=== PATIENT | male | born 1950 | race Caucasian/White ===

== ENCOUNTER 2019-09-22 10:44 | Inpatient (IN) ==
[2019-09-22] MEDS ORDERED: POTASSIUM CHLORIDE RIDER 10 MEQ in PREMIX 1 EACH IV PRN (12:44)
[2019-09-22] MEDS ORDERED: MAGNESIUM SULF RIDER 2 GM in PREMIX 1 EACH IV PRN (12:44)
[2019-09-22] MEDS ORDERED: ASPIRIN 325 MG TABLET PO ONE (12:44)
[2019-09-22] MEDS ORDERED: diphenhydrAMINE CAP 25 MG CAPSULE PO ONE (12:44)
[2019-09-22] MEDS ORDERED: DIAZEPAM 5 MG TABLET PO ONE (12:44)
[2019-09-22] MEDS ORDERED: methylPREDNISolone SOD SUC 125 MG/2 ML VIAL IV ONE (12:46)
[2019-09-22] MEDS ORDERED: HEPARIN/NACL 0.9% 2 UNITS/ML 1,000 ML IV ONE (12:49)
[2019-09-22 12:57] LABS: Basophils % 0.8 % (0.0-0.8); Eosinophils % 0.8 % (0.00-10.9); Hematocrit 40.5 VOL% (42.0-52.0); Hemoglobin 13.1 GM/DL (14.0-18.0); Immature Granulocytes % 0.3 %; Immature Granulocytes Absolute 0.01 #; Lymphocytes # 1.5 10*3/uL (1.4-4.0); Lymphocytes % 39.5 % (21.2-54.2); Mean Corpuscular HGB Conc 32.3 GM/DL (32-36); Mean Corpuscular Volume 92.7 FL (87-102); Mean Platelet Volume 12.8 FL (9.6-12.0); Monocytes % 13.1 % (1.7-12.7); Neutrophils % 45.5 % (38.7-73.9); Platelet Count 133 T/CUMM (130-400); Red Blood Count 4.37 MC/CUMM (3.8-5.5); White Blood Count 3.9 T/CUMM (4-12)
[2019-09-22] MEDS ORDERED: DEXTROSE 5% NACL 0.45% 1,000 ML IV SCH (13:00)
[2019-09-22 13:04] LABS: INR 1.1; PT Patient Result 12.1 SECS (9.6-12.2)
[2019-09-22] MEDS ORDERED: MIDAZOLAM 2 MG/2 ML VIAL ONE (13:15)
[2019-09-22] MEDS ORDERED: LIDOCAINE 1%/EPI INJ 20 ML VIAL ONE (13:15)
[2019-09-22] MEDS ORDERED: fentaNYL 100 MCG/2 ML VIAL ONE (13:15)
[2019-09-22 14:12] LABS: Albumin 3.6 G/DL (3.4-5.0); Bilirubin,Total 0.5 MG/DL (0.2-1.0); Calcium 9.3 MG/DL (8.5-10.1); Osmolality,Calculated 273.1 MOS/KG (273-304); Total Protein 8.4 G/DL (6.4-8.3)
[2019-09-22] MEDS ORDERED: GLUCAGON 1 MG VIAL IM PRN (15:56)
[2019-09-22] MEDS ORDERED: DEXTROSE 10% 250 ML BAG IV PRN (15:56)
[2019-09-22] MEDS ORDERED: carvediloL 12.5 MG TABLET PO SCH (17:00)
[2019-09-22 17:48] LABS: ABG Base Excess 2.2 MMOL/L (-2.5-2.5); ABG HCO3 26.4 MMOL/L (20-26); ABG Oxygen Saturation 97.1 % (95-100); ABG PCO2 33.5 MM HG (35-48); ABG PH 7.484 (7.35-7.45); Pt O2 Delivery Device Room Air
[2019-09-22] MEDS ORDERED: SIMVASTATIN 40 MG TABLET PO SCH (18:00)
[2019-09-22] MEDS: CHLORHEXIDINE 4% SOLN 118 ML BOTTLE TOP SCH ×2 (18:30→21:07)
[2019-09-22 19:03] LABS: Albumin 3.5 G/DL (3.4-5.0); Bilirubin,Total 0.4 MG/DL (0.2-1.0); Calcium 8.9 MG/DL (8.5-10.1); Osmolality,Calculated 277.1 MOS/KG (273-304); Total Protein 8.1 G/DL (6.4-8.3)
[2019-09-22] MEDS ORDERED: METOPROLOL SUCCINATE XL 50 MG TABLET PO SCH (21:00)
[2019-09-22] MEDS ORDERED: CITALOPRAM 20 MG TABLET PO SCH (21:00)
[2019-09-22] MEDS ORDERED: LOSARTAN 50 MG TABLET PO SCH (21:00)
[2019-09-22] MEDS ORDERED: hydroCHLOROthiazide 12.5 MG CAPSULE PO SCH (21:00)
[2019-09-22] MEDS: CHLORHEXIDINE 0.12% ORAL RINSE 60 ML BOTTLE SWISH/SPIT SCH (21:07)
[2019-09-23] MEDS ORDERED: NITROPRUSSIDE 50 MG/2 ML VIAL ONE (04:07)
[2019-09-23] MEDS ORDERED: SODIUM BICARBONATE 50 MEQ/50 ML VIAL IV ONE ×2 (04:07→10:48)
[2019-09-23] MEDS ORDERED: PHENYLEPHRINE DRIP 40 MG/250 ML PREMIX IV ONE (04:07)
[2019-09-23] MEDS ORDERED: POTASSIUM CHLORIDE RIDER 100 ML IV ONE (04:08)
[2019-09-23] MEDS ORDERED: CALCIUM CHLORIDE 1,000 MG/10 ML SYRINGE IV ONE (04:08)
[2019-09-23] MEDS ORDERED: VANCOMYCIN 500 MG VIAL ONE (04:41)
[2019-09-23] MEDS ORDERED: PAPAVERINE 60 MG/2 ML VIAL ONE (04:41)
[2019-09-23] MEDS ORDERED: VANCOMYCIN 1,000 MG VIAL ONE (04:42)
[2019-09-23] MEDS ORDERED: CEFUROXIME INJ 1,500 MG in SYRINGE 1 EACH IV ONE (05:00)
[2019-09-23] MEDS ORDERED: SODIUM CHLORIDE 0.9% 1,000 ML IV SCH (05:00)
[2019-09-23] MEDS ORDERED: ALBUMIN 5% 12.5 GM/250 ML VIAL IV ONE ×2 (05:20→11:55)
[2019-09-23] MEDS ORDERED: SUFentanil 250 MCG/5 ML AMP ONE (05:44)
[2019-09-23] MEDS ORDERED: MIDAZOLAM 10 MG/2 ML VIAL ONE ×2 (05:45)
[2019-09-23] MEDS ORDERED: VECURONIUM 10 MG VIAL IV ONE (05:45)
[2019-09-23] MEDS ORDERED: MINERAL OIL/PETROLATUM OPH OINT 3.5 GM TUBE ONE (05:45)
[2019-09-23] MEDS ORDERED: FAMOTIDINE 20 MG/2 ML VIAL IV ONE (06:08)
[2019-09-23] MEDS ORDERED: diphenhydrAMINE 50 MG/1 ML VIAL ONE (06:08)
[2019-09-23 07:36] LABS: ABG Base Excess 0.2 MMOL/L (-2.5-2.5); ABG HCO3 24.6 MMOL/L (20-26); ABG Oxygen Saturation 99.8 % (95-100); ABG PCO2 37.7 MM HG (35-48); ABG TCO2 21.8 MMOL/L (23-27); Glucose Heart Surgery 128 MG/DL (74-106); Hematocrit Heart Surgery 34.5 PERCENT (42-52); Hemoglobin Heart Surgery 11.2 G/DL (14.0-18.0); Ionized Calcium Arterial 1.22 MMOL/L (1.21-1.46); PCO2 Patient Temp Arterial 37.7 MMHG; Patient Temperature 37 CELCIUS; Potassium Heart/CVR 3.6 MMOL/L (3.5-5.1); Sodium Heart/CVR 137 MMOL/L (135-145)
[2019-09-23 08:02] LABS: Apearance,Urine CLEAR (Clear); Bilirubin,Urine Negative (Negative); Blood, Urine Small mg/dL (Negative); Glucose,Urine (UA) Negative (Negative); Ketones,Urine Negative (Negative); Mucus,Urine Occasional /LPF (Occasional); Nitrite,Urine Negative (Negative); Protein,Urine Negative; RBC,Urine 15 /HPF (0-4); Urine Color Yellow (Yellow); Urine Specific Gravity 1.021 (1.001-1.035); Urine Urobilinogen < 2.0 EU/DL (0.2-1.0); WBC,Urine 1 /HPF (0-6)
[2019-09-23 09:00] LABS: Hematocrit Heart Surgery 26.7 PERCENT (42-52); Hemoglobin Heart Surgery 8.6 G/DL (14.0-18.0); PCO2 Patient Temp Venous 37.7 MM HG; PH Patient Temp Venous 7.431; PO2 Patient Temp Venous 39.2 MM HG; Potassium Heart/CVR 4.3 MMOL/L (3.5-5.1); VBG Oxygen Saturation 79.6 %; VBG PCO2 41.5 MMHG (41-51); VBG PH 7.401
[2019-09-23] MEDS ORDERED: ASPIRIN EC 325 MG TABLET PO SCH (09:00)
[2019-09-23] MEDS ORDERED: THIAMINE 200 MG/2 ML VIAL IV SCH (09:00)
[2019-09-23] MEDS ORDERED: MULTIVITAMIN (CENTRUM) TABLET PO SCH (09:00)
[2019-09-23] MEDS ORDERED: FOLIC ACID INJ 1 MG in SYRINGE 1 EACH IV SCH (09:00)
[2019-09-23 09:36] LABS: Hematocrit Heart Surgery 28.8 PERCENT (42-52); Hemoglobin Heart Surgery 9.3 G/DL (14.0-18.0); PCO2 Patient Temp Venous 32.8 MM HG; PH Patient Temp Venous 7.484; PO2 Patient Temp Venous 33.6 MM HG; Potassium Heart/CVR 4.1 MMOL/L (3.5-5.1); VBG Base Excess 1.7 MEQ/L (0-4); VBG HCO3 25.6 MEQ/L (24-28); VBG Oxygen Saturation 77.3 %; VBG PH 7.44; VBG PO2 41.4 MMHG (17-40)
[2019-09-23] MEDS ORDERED: THROMBIN TOPICAL (RECOMBINANT) 5,000 UNIT VIAL TOP ONE (10:06)
[2019-09-23 10:09] LABS: Hematocrit Heart Surgery 27.9 PERCENT (42-52); PCO2 Patient Temp Venous 30.7 MM HG; PH Patient Temp Venous 7.505; PO2 Patient Temp Venous 37.6 MM HG; VBG Base Excess 1.6 MEQ/L (0-4); VBG HCO3 25.6 MEQ/L (24-28); VBG Oxygen Saturation 81.5 %; VBG PCO2 33.8 MMHG (41-51); VBG PH 7.475; VBG PO2 43.2 MMHG (17-40)
[2019-09-23] MEDS ORDERED: DEXTROSE 5% KCL 20 MEQ 20 MEQ/1,000 ML BAG IV ONE (10:47)
[2019-09-23] MEDS ORDERED: LIDOCAINE 2% 5 ML VIAL ONE ×2 (10:47→11:56)
[2019-09-23] MEDS ORDERED: MANNITOL 100 GM/500 ML BAG IV ONE (10:47)
[2019-09-23] MEDS ORDERED: PROTAMINE SULFATE 50 MG/5 ML VIAL IV ONE ×3 (10:48→12:04)
[2019-09-23] MEDS ORDERED: ALBUMIN 25% 25 GM/100 ML VIAL IV ONE (10:48)
[2019-09-23] MEDS ORDERED: PROTAMINE SULFATE 250 MG/25 ML VIAL IV ONE (10:48)
[2019-09-23] MEDS ORDERED: MAGNESIUM SULFATE 5 GM/10 ML VIAL IV ONE (10:48)
[2019-09-23] MEDS ORDERED: POTASSIUM CHLORIDE 20 MEQ/10 ML VIAL ONE (10:48)
[2019-09-23] MEDS ORDERED: HEPARIN 10,000 UNIT/10 ML VIAL ONE (10:48)
[2019-09-23] MEDS ORDERED: FUROSEMIDE 20 MG/2 ML VIAL ONE (10:48)
[2019-09-23] MEDS ORDERED: methylPREDNISolone SOD SUC 1,000 MG/8 ML VIAL ONE (10:48)
[2019-09-23 10:57] LABS: ABG Base Excess 0.5 MMOL/L (-2.5-2.5); ABG HCO3 24.9 MMOL/L (20-26); ABG PCO2 37.5 MM HG (35-48); ABG PH 7.427 (7.35-7.45); ABG TCO2 22.8 MMOL/L (23-27); Glucose Heart Surgery 209 MG/DL (74-106); Hematocrit Heart Surgery 27.1 PERCENT (42-52); Hemoglobin Heart Surgery 8.7 G/DL (14.0-18.0); Ionized Calcium Arterial 1.37 MMOL/L (1.21-1.46); PCO2 Patient Temp Arterial 37.5 MMHG; PH Patient Temp Arterial 7.427; Patient Temperature 37 CELCIUS; Potassium Heart/CVR 3.8 MMOL/L (3.5-5.1); Sodium Heart/CVR 135 MMOL/L (135-145)
[2019-09-23] MEDS ORDERED: CALCIUM CHLORIDE 1,000 MG/10 ML VIAL IV ONE (11:56)
[2019-09-23] MEDS ORDERED: ETOMIDATE 40 MG/20 ML VIAL IV ONE (11:56)
[2019-09-23] MEDS ORDERED: SEVOFLURANE 1 UNIT/15 MINUTE INH ONE (11:56)
[2019-09-23] MEDS ORDERED: AMINOCAPROIC ACID 5,000 MG/20 ML VIAL ONE (11:57)
[2019-09-23] MEDS ORDERED: SODIUM CHLORIDE 0.9% 250 ML IV ONE (11:57)
[2019-09-23] MEDS ORDERED: LACTATED RINGERS 1,000 ML IV ONE (11:57)
[2019-09-23] MEDS ORDERED: SODIUM CHLORIDE 0.9% 1,000 ML IV ONE (11:57)
[2019-09-23] MEDS: LACTATED RINGERS 1,000 ML IV PRN ×2 (12:00→16:43)
[2019-09-23] MEDS ORDERED: ONDANSETRON 4 MG/2 ML VIAL IV PRN (12:03)
[2019-09-23] MEDS ORDERED: MORPHINE 4 MG/1 ML VIAL IV PRN (12:03)
[2019-09-23] MEDS ORDERED: CALCIUM CHLORIDE 1,000 MG/10 ML SYRINGE IV PRN (12:03)
[2019-09-23] MEDS ORDERED: ACETAMINOPHEN 650 MG SUPP RECTAL PRN (12:03)
[2019-09-23] MEDS ORDERED: VECURONIUM 10 MG VIAL IV PRN ×2 (12:03)
[2019-09-23] MEDS ORDERED: LACTATED RINGERS 250 ML IV PRN (12:03)
[2019-09-23] MEDS ORDERED: DEXTROSE 10% 1,000 ML BAG IV PRN (12:03)
[2019-09-23] MEDS ORDERED: MAGNESIUM SULF RIDER 2 GM in PREMIX 1 EACH IV PRN (12:03)
[2019-09-23] MEDS ORDERED: NITROPRUSSIDE 100 MG in DEXTROSE 5% 250 ML IV PRN (12:03)
[2019-09-23] MEDS ORDERED: INSULIN REGULAR DRIP 100 ML IV SCH (12:03)
[2019-09-23] MEDS ORDERED: INSULIN REGULAR 100 UNIT/ML IV PRN (12:03)
[2019-09-23] MEDS ORDERED: CHLORHEXIDINE 4% SOLN 118 ML BOTTLE TOP PRN (12:03)
[2019-09-23] MEDS ORDERED: SODIUM CHLORIDE 0.45% 1,000 ML IV SCH ×2 (12:03)
[2019-09-23] MEDS ORDERED: MIDAZOLAM 10 MG/2 ML VIAL IV PRN (12:03)
[2019-09-23] MEDS ORDERED: POTASSIUM CHLORIDE RIDER 10 MEQ in PREMIX 1 EACH IV PRN (12:03)
[2019-09-23] MEDS ORDERED: MAGNESIUM SULF RIDER 4 GM in PREMIX 1 EACH IV PRN (12:03)
[2019-09-23] MEDS ORDERED: PHENYLEPHRINE DRIP 40 MG/250 ML PREMIX IV PRN (12:03)
[2019-09-23] MEDS ORDERED: INSULIN REGULAR 100 UNIT/ML IV ONE (12:03)
[2019-09-23] MEDS ORDERED: DEXTROSE 10% 250 ML BAG IV PRN (12:07)
[2019-09-23] MEDS: ALBUMIN 5% 12.5 GM in PREMIX 1 EACH IV PRN ×3 (12:10→14:33)
[2019-09-23 12:13] LABS: ABG Base Excess -1.2 MMOL/L (-2.5-2.5); ABG HCO3 23.4 MMOL/L (20-26); ABG PCO2 35.3 MM HG (35-48); ABG TCO2 21.3 MMOL/L (23-27); Glucose Heart Surgery 170 MG/DL (74-106); Hematocrit Heart Surgery 25.6 PERCENT (42-52); Hemoglobin Heart Surgery 8.2 G/DL (14.0-18.0); Potassium Heart/CVR 3.4 MMOL/L (3.5-5.1)
[2019-09-23 12:16] LABS: Basophils % 0.2 % (0.0-0.8); Eosinophils % 0.1 % (0.00-10.9); Hematocrit 25.4 VOL% (42.0-52.0); Hemoglobin 8.1 GM/DL (14.0-18.0); Immature Granulocytes % 1.2 %; Immature Granulocytes Absolute 0.14 #; Lymphocytes # 1.5 10*3/uL (1.4-4.0); Lymphocytes % 12.8 % (21.2-54.2); Mean Corpuscular HGB Conc 31.9 GM/DL (32-36); Mean Corpuscular Volume 93.7 FL (87-102); Mean Platelet Volume 11.2 FL (9.6-12.0); Monocytes % 7.2 % (1.7-12.7); Neutrophils % 78.5 % (38.7-73.9); Platelet Count 82 T/CUMM (130-400); Red Blood Count 2.71 MC/CUMM (3.8-5.5); Red Cell Distribution Width 13.1 % (9.3-17.3); White Blood Count 12.1 T/CUMM (4-12)
[2019-09-23 12:28] LABS: INR 1.6; Partial Thromboplastin Time 28.3 SECS (20.8-36.0)
[2019-09-23] MEDS: POTASSIUM CHLORIDE RIDER 20 MEQ in PREMIX 1 EACH IV PRN ×3 (12:34→21:39)
[2019-09-23 12:38] LABS: Albumin 2.9 G/DL (3.4-5.0); Bilirubin,Total 0.6 MG/DL (0.2-1.0); Calcium 8.9 MG/DL (8.5-10.1); Osmolality,Calculated 279.7 MOS/KG (273-304); Total Protein 5.7 G/DL (6.4-8.3)
[2019-09-23 12:40] LABS: Hypochromasia 2+; Ovalocytes Slight; Platelet Estimate Decreased
[2019-09-23 12:41] LABS: CKMB % 8.3 %
[2019-09-23 12:44] LABS: Troponin I 2.84 NG/ML (0.00-0.045)
[2019-09-23] MEDS: MIDAZOLAM 2 MG/2 ML VIAL IV PRN ×2 (14:10→16:03)
[2019-09-23 14:22] LABS: ABG HCO3 22.7 MMOL/L (20-26); ABG Oxygen Saturation 98.6 % (95-100); ABG PH 7.409 (7.35-7.45); Glucose Heart Surgery 200 MG/DL (74-106); Hematocrit Heart Surgery 31.7 PERCENT (42-52); Potassium Heart/CVR 4.2 MMOL/L (3.5-5.1)
[2019-09-23 14:26] LABS: Hemoglobin Heart Surgery 10.2 G/DL (14.0-18.0)
[2019-09-23] MEDS: MORPHINE 10 MG/1 ML VIAL IV PRN ×2 (15:28→23:42)
[2019-09-23] MEDS: CHLORHEXIDINE 0.12% ORAL RINSE 60 ML BOTTLE SWISH/SPIT SCH ×2 (15:46→21:10)
[2019-09-23] MEDS: CHLORHEXIDINE 4% SOLN 118 ML BOTTLE TOP SCH (15:46)
[2019-09-23] MEDS: KETOROLAC 30 MG/1 ML VIAL IV SCH ×2 (17:28→22:53)
[2019-09-23 18:31] LABS: ABG HCO3 22.8 MMOL/L (20-26); ABG PCO2 37.9 MM HG (35-48); ABG PH 7.386 (7.35-7.45); ABG TCO2 20.8 MMOL/L (23-27); Glucose Heart Surgery 162 MG/DL (74-106); Hematocrit Heart Surgery 30.1 PERCENT (42-52); Hemoglobin Heart Surgery 9.7 G/DL (14.0-18.0)
[2019-09-23] MEDS: CEFUROXIME INJ 1,500 MG in SYRINGE 1 EACH IV SCH (20:29)
[2019-09-23 21:28] LABS: ABG Base Excess -1.9 MMOL/L (-2.5-2.5); ABG HCO3 22.8 MMOL/L (20-26); ABG Oxygen Saturation 98.6 % (95-100); ABG PCO2 39.4 MM HG (35-48); ABG PH 7.375 (7.35-7.45); ABG TCO2 21.2 MMOL/L (23-27); Glucose Heart Surgery 144 MG/DL (74-106); Hematocrit Heart Surgery 29.1 PERCENT (42-52); Hemoglobin Heart Surgery 9.4 G/DL (14.0-18.0)
[2019-09-23 22:02] LABS: CKMB % 9.8 %
[2019-09-23] MEDS ORDERED: FUROSEMIDE 40 MG/4 ML VIAL IV PRN (22:04)
[2019-09-23 22:10] LABS: Troponin I 6.75 NG/ML (0.00-0.045)
[2019-09-23 22:16] LABS: ABG Base Excess -1.5 MMOL/L (-2.5-2.5); ABG HCO3 23.2 MMOL/L (20-26); ABG Oxygen Saturation 98.4 % (95-100); ABG PCO2 39.8 MM HG (35-48); ABG PH 7.379 (7.35-7.45); ABG TCO2 21.5 MMOL/L (23-27); Glucose Heart Surgery 140 MG/DL (74-106); Hematocrit Heart Surgery 29.7 PERCENT (42-52); Hemoglobin Heart Surgery 9.6 G/DL (14.0-18.0); Potassium Heart/CVR 4.8 MMOL/L (3.5-5.1)
[2019-09-23 22:52] LABS: ABG HCO3 23.6 MMOL/L (20-26); ABG Oxygen Saturation 97.6 % (95-100); ABG PCO2 38.3 MM HG (35-48); ABG PH 7.397 (7.35-7.45); ABG PO2 92.1 MM HG (80-95); ABG TCO2 21.5 MMOL/L (23-27); Glucose Heart Surgery 148 MG/DL (74-106); Hematocrit Heart Surgery 30.6 PERCENT (42-52); Hemoglobin Heart Surgery 9.9 G/DL (14.0-18.0); Potassium Heart/CVR 4.4 MMOL/L (3.5-5.1)
[2019-09-23 23:41] LABS: ABG HCO3 23.6 MMOL/L (20-26); ABG Oxygen Saturation 98.4 % (95-100); ABG PCO2 40.6 MM HG (35-48); ABG PH 7.379 (7.35-7.45); ABG TCO2 21.9 MMOL/L (23-27); Glucose Heart Surgery 144 MG/DL (74-106); Hematocrit Heart Surgery 30.8 PERCENT (42-52); Potassium Heart/CVR 4.2 MMOL/L (3.5-5.1)
[2019-09-24] MEDS: MORPHINE 10 MG/1 ML VIAL IV PRN (01:54)
[2019-09-24 03:08] LABS: ABG Base Excess -0.4 MMOL/L (-2.5-2.5); ABG PCO2 43.8 MM HG (35-48); ABG PH 7.365 (7.35-7.45); ABG PO2 88.4 MM HG (80-95); ABG TCO2 22.9 MMOL/L (23-27); Glucose Heart Surgery 124 MG/DL (74-106); Hematocrit Heart Surgery 30.1 PERCENT (42-52); Hemoglobin Heart Surgery 9.7 G/DL (14.0-18.0); Potassium Heart/CVR 4.3 MMOL/L (3.5-5.1)
[2019-09-24 03:14] LABS: Hematocrit 28.8 VOL% (42.0-52.0); Hemoglobin 9.3 GM/DL (14.0-18.0); Immature Granulocytes % 0.4 %; Immature Granulocytes Absolute 0.03 #; Lymphocytes # 0.7 10*3/uL (1.4-4.0); Lymphocytes % 8.6 % (21.2-54.2); Mean Corpuscular HGB Conc 32.3 GM/DL (32-36); Mean Corpuscular Volume 92.9 FL (87-102); Mean Platelet Volume 11.9 FL (9.6-12.0); Platelet Count 75 T/CUMM (130-400); Red Cell Distribution Width 14.3 % (9.3-17.3); White Blood Count 8.5 T/CUMM (4-12)
[2019-09-24 03:34] LABS: CKMB % 8.9 %
[2019-09-24 03:36] LABS: Troponin I 9.69 NG/ML (0.00-0.045)
[2019-09-24 03:38] LABS: Alanine Aminotransferase 69 U/L (16-61); Albumin 3.3 G/DL (3.4-5.0); Alkaline Phosphatase 47 U/L (45-117); Aspartate Amino Transferase 77 U/L (0-37); Bilirubin,Direct < 0.100 MG/DL (0.0-0.20); Bilirubin,Total < 0.39 MG/DL (0.2-1.0); Blood Urea Nitrogen 20 MG/DL (7-18); Estimated Glom Filtration Rate 79 ML/MIN; Glucose 112 MG/DL (74-106); Osmolality,Calculated 282.4 MOS/KG (273-304); Total Protein 6.1 G/DL (6.4-8.3)
[2019-09-24] MEDS: POTASSIUM CHLORIDE RIDER 20 MEQ in PREMIX 1 EACH IV PRN (04:48)
[2019-09-24 05:11] LABS: Band Neutrophils 2 % (0-10); Lymphocytes 16 % (20-55); Segmented Neutrophils 76 % (50-85); Total Cells Counted 100
[2019-09-24 05:12] LABS: Anisocytosis 1+; Ovalocytes 1+; Platelet Estimate Decreased
[2019-09-24] MEDS: KETOROLAC 30 MG/1 ML VIAL IV SCH ×4 (05:32→23:12)
[2019-09-24] MEDS: CEFUROXIME INJ 1,500 MG in SYRINGE 1 EACH IV SCH (09:28)
[2019-09-24] MEDS: THIAMINE 200 MG/2 ML VIAL IV SCH (09:29)
[2019-09-24] MEDS: CHLORHEXIDINE 0.12% ORAL RINSE 60 ML BOTTLE SWISH/SPIT SCH ×3 (09:30→23:23)
[2019-09-24] MEDS: MULTIVITAMIN (CENTRUM) TABLET PO SCH (09:30)
[2019-09-24] MEDS ORDERED: MAGNESIUM SULF RIDER 2 GM in PREMIX 1 EACH IV PRN (10:14)
[2019-09-24] MEDS ORDERED: ACETAMINOPHEN 325 MG TABLET PO PRN (10:14)
[2019-09-24] MEDS ORDERED: ASPIRIN EC 325 MG TABLET PO SCH (10:14)
[2019-09-24] MEDS ORDERED: MAGNESIUM SULF RIDER 4 GM in PREMIX 1 EACH IV PRN (10:14)
[2019-09-24] MEDS ORDERED: GLUCAGON 1 MG VIAL IM PRN ×2 (10:14)
[2019-09-24] MEDS ORDERED: DEXTROSE 10% 250 ML BAG IV PRN (10:14)
[2019-09-24] MEDS ORDERED: ONDANSETRON 4 MG/2 ML VIAL IV PRN (10:14)
[2019-09-24] MEDS ORDERED: POTASSIUM CHLORIDE 20 MEQ TABLET PO PRN (10:14)
[2019-09-24] MEDS ORDERED: KETOROLAC 30 MG/1 ML VIAL IV SCH (10:14)
[2019-09-24] MEDS ORDERED: SODIUM CHLOR 0.45% KCL 20 MEQ 20 MEQ/1,000 ML BAG IV SCH (10:14)
[2019-09-24] MEDS ORDERED: MAGNESIUM HYDROXIDE SUSP 30 ML UDCUP PO PRN (10:14)
[2019-09-24] MEDS ORDERED: ZALEPLON 5 MG CAPSULE PO PRN (10:14)
[2019-09-24] MEDS ORDERED: DEXTROSE 50% 25 GM/50 ML VIAL IV PRN (10:14)
[2019-09-24] MEDS: oxyCODONE/ACETAMINOPHEN 5-325 MG TABLET PO PRN ×2 (10:32→23:17)
[2019-09-24] MEDS: PANTOPRAZOLE 40 MG TABLET PO SCH (10:49)
[2019-09-24] MEDS: DOCUSATE SODIUM 100 MG CAPSULE PO SCH (10:50)
[2019-09-24] MEDS: FERROUS SULFATE 325 MG TABLET PO SCH (10:50)
[2019-09-24] MEDS: SIMVASTATIN 40 MG TABLET PO SCH (17:13)
[2019-09-24] MEDS: carvediloL 12.5 MG TABLET PO SCH (17:13)
[2019-09-24] MEDS ORDERED: CEFUROXIME IV ONE (19:00)
[2019-09-24] MEDS: CITALOPRAM 20 MG TABLET PO SCH (23:09)
[2019-09-24] MEDS: LOSARTAN 50 MG TABLET PO SCH (23:10)
[2019-09-24] MEDS: hydroCHLOROthiazide 12.5 MG CAPSULE PO SCH (23:10)
[2019-09-24] MEDS: ALUMINUM/MAGNES/SIMETH MAX STR 30 ML UDCUP PO PRN (23:19)
[2019-09-25] MEDS: oxyCODONE/ACETAMINOPHEN 5-325 MG TABLET PO PRN ×3 (04:11→22:33)
[2019-09-25] MEDS: ALUMINUM/MAGNES/SIMETH MAX STR 30 ML UDCUP PO PRN (04:51)
[2019-09-25] MEDS ORDERED: FUROSEMIDE 40 MG/4 ML VIAL IV ONE (06:00)
[2019-09-25] MEDS: KETOROLAC 30 MG/1 ML VIAL IV SCH ×3 (06:19→17:07)
[2019-09-25 06:58] LABS: Hemoglobin 8.3 GM/DL (14.0-18.0); Immature Granulocytes % 0.5 %; Immature Granulocytes Absolute 0.04 #; Lymphocytes # 1.2 10*3/uL (1.4-4.0); Lymphocytes % 15.3 % (21.2-54.2); Mean Corpuscular HGB Conc 31.9 GM/DL (32-36); Mean Corpuscular Volume 94.9 FL (87-102); Mean Platelet Volume 12.7 FL (9.6-12.0); Monocytes % 9.1 % (1.7-12.7); Neutrophils % 75.1 % (38.7-73.9); Platelet Count 61 T/CUMM (130-400); Red Blood Count 2.74 MC/CUMM (3.8-5.5); Red Cell Distribution Width 14.4 % (9.3-17.3); White Blood Count 7.7 T/CUMM (4-12)
[2019-09-25 07:16] LABS: Alanine Aminotransferase 48 U/L (16-61); Albumin 2.8 G/DL (3.4-5.0); Alkaline Phosphatase 40 U/L (45-117); Aspartate Amino Transferase 44 U/L (0-37); Bilirubin,Direct < 0.100 MG/DL (0.0-0.20); Bilirubin,Indirect 0.5 MG/DL (0.0-1.0); Blood Urea Nitrogen 31 MG/DL (7-18); CKMB % 4.5 %; Calcium 7.8 MG/DL (8.5-10.1); Estimated Glom Filtration Rate 92 ML/MIN; Glucose 121 MG/DL (74-106); Osmolality,Calculated 284.5 MOS/KG (273-304); Total Protein 5.8 G/DL (6.4-8.3)
[2019-09-25] MEDS: ASPIRIN EC 81 MG TABLET PO SCH (09:08)
[2019-09-25] MEDS: FERROUS SULFATE 325 MG TABLET PO SCH (09:10)
[2019-09-25] MEDS: DOCUSATE SODIUM 100 MG CAPSULE PO SCH (09:10)
[2019-09-25] MEDS: carvediloL 12.5 MG TABLET PO SCH ×2 (09:10→16:54)
[2019-09-25] MEDS: PANTOPRAZOLE 40 MG TABLET PO SCH (09:10)
[2019-09-25] MEDS: CHLORHEXIDINE 0.12% ORAL RINSE 60 ML BOTTLE SWISH/SPIT SCH ×2 (09:12→22:35)
[2019-09-25] MEDS: MULTIVITAMIN (CENTRUM) TABLET PO SCH (09:16)
[2019-09-25] MEDS: THIAMINE 200 MG/2 ML VIAL IV SCH (11:13)
[2019-09-25] MEDS: SIMVASTATIN 40 MG TABLET PO SCH ×2 (16:54→18:51)
[2019-09-25] MEDS: LOSARTAN 50 MG TABLET PO SCH (22:29)
[2019-09-25] MEDS: CITALOPRAM 20 MG TABLET PO SCH (22:29)
[2019-09-25] MEDS: hydroCHLOROthiazide 12.5 MG CAPSULE PO SCH (22:30)
[2019-09-26] MEDS: KETOROLAC 30 MG/1 ML VIAL IV SCH ×5 (00:42→23:42)
[2019-09-26 05:35] LABS: Basophils % 0.1 % (0.0-0.8); Eosinophils % 0.3 % (0.00-10.9); Hematocrit 27.1 VOL% (42.0-52.0); Hemoglobin 8.6 GM/DL (14.0-18.0); Immature Granulocytes % 0.4 %; Immature Granulocytes Absolute 0.03 #; Lymphocytes # 1.7 10*3/uL (1.4-4.0); Lymphocytes % 23.7 % (21.2-54.2); Mean Corpuscular HGB Conc 31.7 GM/DL (32-36); Mean Corpuscular Volume 94.4 FL (87-102); Mean Platelet Volume 12.5 FL (9.6-12.0); Monocytes % 11.7 % (1.7-12.7); Neutrophils % 63.8 % (38.7-73.9); Platelet Count 81 T/CUMM (130-400); Red Blood Count 2.87 MC/CUMM (3.8-5.5); Red Cell Distribution Width 13.7 % (9.3-17.3); White Blood Count 7.1 T/CUMM (4-12)
[2019-09-26 06:06] LABS: Hypochromasia Slight; Microcytosis Slight; Ovalocytes Slight; Platelet Estimate Decreased
[2019-09-26 06:13] LABS: Alanine Aminotransferase 53 U/L (16-61); Albumin 2.9 G/DL (3.4-5.0); Alkaline Phosphatase 49 U/L (45-117); Aspartate Amino Transferase 47 U/L (0-37); Bilirubin,Indirect 0.6 MG/DL (0.0-1.0); Blood Urea Nitrogen 29 MG/DL (7-18); Estimated Glom Filtration Rate 104 ML/MIN; Glucose 92 MG/DL (74-106); Osmolality,Calculated 280.7 MOS/KG (273-304); Total Protein 5.9 G/DL (6.4-8.3)
[2019-09-26] MEDS: DOCUSATE SODIUM 100 MG CAPSULE PO SCH ×2 (09:07→21:46)
[2019-09-26] MEDS: ASPIRIN EC 81 MG TABLET PO SCH (09:07)
[2019-09-26] MEDS: carvediloL 12.5 MG TABLET PO SCH ×2 (09:07→17:47)
[2019-09-26] MEDS: PANTOPRAZOLE 40 MG TABLET PO SCH (09:08)
[2019-09-26] MEDS: CHLORHEXIDINE 0.12% ORAL RINSE 60 ML BOTTLE SWISH/SPIT SCH ×2 (09:08→21:47)
[2019-09-26] MEDS: MULTIVITAMIN (CENTRUM) TABLET PO SCH (09:08)
[2019-09-26] MEDS: FERROUS SULFATE 325 MG TABLET PO SCH (09:08)
[2019-09-26] MEDS: THIAMINE 200 MG/2 ML VIAL IV SCH (09:18)
[2019-09-26] MEDS ORDERED: LACTULOSE 20 GM/30 ML UDCUP PO PRN (13:45)
[2019-09-26] MEDS: oxyCODONE/ACETAMINOPHEN 5-325 MG TABLET PO PRN (15:51)
[2019-09-26] MEDS: SIMVASTATIN 40 MG TABLET PO SCH (17:48)
[2019-09-26] MEDS: CITALOPRAM 20 MG TABLET PO SCH (21:46)
[2019-09-26] MEDS: LOSARTAN 50 MG TABLET PO SCH (21:47)
[2019-09-26] MEDS: hydroCHLOROthiazide 12.5 MG CAPSULE PO SCH (21:47)
[2019-09-27] MEDS: KETOROLAC 30 MG/1 ML VIAL IV SCH (05:10)
[2019-09-27 05:34] LABS: Basophils % 0.2 % (0.0-0.8); Eosinophils # 0.1 10*3/uL (0.0-0.87); Eosinophils % 1.4 % (0.00-10.9); Hematocrit 26.4 VOL% (42.0-52.0); Hemoglobin 8.6 GM/DL (14.0-18.0); Immature Granulocytes % 0.3 %; Immature Granulocytes Absolute 0.02 #; Lymphocytes # 1.3 10*3/uL (1.4-4.0); Lymphocytes % 20.6 % (21.2-54.2); Mean Corpuscular HGB Conc 32.6 GM/DL (32-36); Mean Corpuscular Volume 91.3 FL (87-102); Mean Platelet Volume 11.7 FL (9.6-12.0); Monocytes % 12.9 % (1.7-12.7); Neutrophils % 64.6 % (38.7-73.9); Platelet Count 100 T/CUMM (130-400); Red Blood Count 2.89 MC/CUMM (3.8-5.5); Red Cell Distribution Width 13.4 % (9.3-17.3); White Blood Count 6.5 T/CUMM (4-12)
[2019-09-27 06:03] LABS: Calcium 8.3 MG/DL (8.5-10.1); Osmolality,Calculated 275.8 MOS/KG (273-304)
[2019-09-27] MEDS: DOCUSATE SODIUM 100 MG CAPSULE PO SCH (08:15)
[2019-09-27] MEDS: ASPIRIN EC 81 MG TABLET PO SCH (08:15)
[2019-09-27] MEDS: CHLORHEXIDINE 0.12% ORAL RINSE 60 ML BOTTLE SWISH/SPIT SCH (08:16)
[2019-09-27] MEDS: MULTIVITAMIN (CENTRUM) TABLET PO SCH (08:16)
[2019-09-27] MEDS: THIAMINE 200 MG/2 ML VIAL IV SCH (08:16)
[2019-09-27] MEDS: carvediloL 12.5 MG TABLET PO SCH (08:16)
[2019-09-27] MEDS: FERROUS SULFATE 325 MG TABLET PO SCH (08:16)
[2019-09-27] MEDS: PANTOPRAZOLE 40 MG TABLET PO SCH (08:16)
[2019-09-27 08:27] VITALS: BP 130/69
== END 2019-09-27 11:35 | disposition home health service (06) | DRG 234 ==
LOC: N.CL 10:44 → N.TELEN 15:56 → N.CVR 09-23 11:41 → N.TELES 09-24 11:38
PROVIDERS: ADMIT Internal Medicine Interventional Cardiology
PROC: CLCCHCL (ICD-10-PCS; 2019-09-22 14:45)